=== PATIENT | male | born 2000 | race Caucasian/White ===

== ENCOUNTER 2022-10-11 08:00 | Outpatient (RCR) | payer OTHER, SELFPAY ==
--- NOTE | 2022-07-17 12:29 | HP.PTEVAL ---
Patient's Visit Information KAILYN LR is a 22 year old M referred to Physical Therapy by Dr. Saulo Fish MD with a diagnosis of L labral repair. Date of Evaluation: 07/17/22 Physical Therapist: Nikolai Pruett, PT, ATC - Visit Plan Frequency: 2-3x /Week Duration: 4-6 Weeks Plan: Follow Protocal. AAROM next Rx, then begin strengthening at week 6 - Subjective DOS: 06/25/22. Pt had a L labral repair at that time. Pt reports he also had anterior and posterior capsulorrhaphy performed at that time. 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 Pt is R hand dominant. Pt reports he has not performed any type of HEP up to this time. Pt notes he is R hand dominant. Pt denies tingling or numbness in L shoulder at this time. Pt denies sleep difficulty at this time secondary to pain. 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 Pt reports his goal is to get back to performing all IADL's and ADL's without limitation. 0/10 pain while sitting here at rest, 2/10 at worst (when I stretch it farther than I should) - Pain L labral repair Pain Intensity (Out of 10): 0 - Objective Neuro: B UE sensation is WNL to light touch. B bicipital reflex= 1/3. Observation: Incisions are fully healed. ROM: R shoulder AROM flex= 180, abd= 170, ER= 90, IR= WNL: L shoulder PROM flex= 90 degrees. MMT: R shoulder AROM flex= 31, abd= 34, ER= 28, IR= 29 #F: L shoulder not tested per protocal - Balance/Special Test Scores Quick DASH Score: 34.0900 - Goals Goal 1:: Decrease L shoulder pain x 50% to aid with IADL's Goal Time Frame: 4-6 Weeks Goal 2:: Increase L shoulder flexion and abduction ROM to be 90% equal to the R shoulder to aid with overhead activity Goal Time Frame: 4-6 Weeks Goal 3:: Increase L shoulder strength to equal 90% of R shoulder strength to aid with return to work Goal Time Frame: 4-6 Weeks Goal 4:: I with HEP Goal Time Frame: 4-6 Weeks - Rehabilitation Potential Physical Therapy Diagnosis: Pt has L shoulder pain, weakness, and limited ROM secondary to L labral repair Rehabilitation Potential: Good - Anticipated Interventions Patient/Client Instruction: Educate patient on: Condition, Plan of Care For the Purpose of:: To improve self management Therapeutic Exercise to Include: Strength training, Endurance training, Flexibilty training, Active ROM, Scapular Strength/Stabilization For the Purpose of:: To decrease pain, To increase ROM, To improve muscle performance and motor function Cryotherapy (ice pack, ice massage): Yes For the Purpose of:: To decrease pain Thank you for the opportunity to evaluate your patient. For Medicare and Medicare HMO plans, please review the plan of care and approve it. It will need to be FAXED BACK to us at [phone] for Medicare purposes. For Medicare only, by signing this I certify the plan of care. Please let me know if there are questions or concerns regarding this plan of care. Physician Signature: Date:
--- NOTE | 2022-09-11 10:03 | HP.PTREVAL ---
Dr. Saulo Fish MD, It has been my pleasure to treat KAILYN LR over the last 17 visits for L labral repair 06/25/22. Please see the progress note below for an update on the physical therapy plan of care! Subjective: I am still very weak with overhead lifting Objective/Function: L shoulder pain 0/10. L shoulder ROM: flex= 170, abd= 170, ER= 55, IR=WNL. L shoulder MMT: flex= 23, abd= 35, ER= 26, IR= 26 #F. Pt is showing excellent progress at this time. Pt is still limited with with overhead activity Plan Plan: Focus on Overhead strengthening at this time Balance/Gait/Functional tests - Balance/Special Test Scores Quick DASH Score: 9.0900 Goals Goal 1:: Decrease L shoulder pain x 50% to aid with IADL's Goal Time Frame: 4-6 Weeks Goal Progress: Goal Met Goal 2:: Increase L shoulder flexion and abduction ROM to be 90% equal to the R shoulder to aid with overhead activity Goal Time Frame: 4-6 Weeks Goal Progress: Progressing Goal 3:: Increase L shoulder strength to equal 90% of R shoulder strength to aid with return to work Goal Time Frame: 4-6 Weeks Goal Progress: Progressing Goal 4:: I with HEP Goal Time Frame: 4-6 Weeks Goal Progress: Progressing Anticipated Interventions Patient/Client Instruction: Educate patient on: Condition, Plan of Care For the Purpose of:: To improve self management Therapeutic Exercise to Include: Strength training, Endurance training, Flexibilty training, Active ROM, Scapular Strength/Stabilization For the Purpose of:: To decrease pain, To increase ROM, To improve muscle performance and motor function Cryotherapy (ice pack, ice massage): Yes For the Purpose of:: To decrease pain Please do not hesitate to contact me at [phone] by phone or if you have questions or concerns regarding this new plan of care! Sincerely, Nikolai Pruett, PT, ATC
--- NOTE | 2022-10-11 08:28 | HP.PTDCSUM_ITS ---
Discharge Summary D/C summary: It has been my pleasure to treat KAILYN LR referred by Dr. Saulo iFsh MD, with the diagnosis of L labral repair 06/25/22 for a total of 23 visit(s). Discharge Date: Please see the following information for a summary of their discharge status. Subjective Subjective: I can do all the stuff I used to be able to do Pain L labral repair: Pain Intensity (Out of 10): 0 Overall Improvement % Improvement: 95 Objective Objective/Function: L shoulder pain is 0/10 L shoulder ROM: flex and abd 175 degrees L shoulder MMT: flex= 22, abd= 35, ER= 32, IR= 36 #F Pt is I with HEP. Rx goals achieved Goals Goal 1:: Decrease L shoulder pain x 50% to aid with IADL's Goal Progress: Goal Met Goal 2:: Increase L shoulder flexion and abduction ROM to be 90% equal to the R shoulder to aid with overhead activity Goal Progress: Goal Met Goal 3:: Increase L shoulder strength to equal 90% of R shoulder strength to aid with return to work Goal Progress: Goal Met Goal 4:: I with HEP Goal Progress: Goal Met Plan Plan: Discharge to HEP D/C Information d/c sentence: If there are questions or concerns regarding this patient's physical therapy, pl ease feel free to call me at [phone]. Thank you for the referral of this patient. Sincerely, Nikolai Pruett, PT, ATC Balance/Gait/Functional tests Balance/Special Test Scores Quick DASH Score: 0
== END 2022-10-11 19:00 | disposition home or self-care (01) ==
LOC: PT 08:00
PROVIDERS: PCP Family Medicine; Referring Provider Orthopaedic Surgery; Visit Provider Orthopaedic Surgery
DX: M25.312 Other instability, left shoulder (principal); Z47.89 Encounter for other orthopedic aftercare
CPT/HCPCS: 97110; 97161; 97164